=== PATIENT | female | born 1945 | race Caucasian/White ===

== ENCOUNTER 2017-12-17 13:39 | Outpatient (CLI) | payer BC, MEDICARE ==
--- NOTE | 2017-12-17 15:30 | MRI ---
NONCONTRAST ENHANCED MRI IMAGES LUMBAR SPINE: HISTORY: Patient with previous laminectomy in 2011, L4-5 surgery in 2007. IV contrast was not given as exam w as ordered without contrast. FINDINGS: Multiplanar, multisequence noncontrast-enhanced MRI images of lumbar spine performed. RADIOGRAPHIC FINDINGS: T11-12: Disk desiccation is seen at this level. No significant degree of central or neural foramina l narrowing is seen. There is some superior end plate height loss and old compression fracture involving the T12 vertebra. This, however, is not acute. T12-L1: Some disk desiccation is seen. Bilateral facet and ligamentum flavum hypertrophy is seen. No significant degree of central spinal stenosis is seen. The right neural foramen demonstrates mode rate to severe T12-L1 neural foraminal narrowing with some compression of exiting right T12 nerve robbie t. The left neural foramen is patent. L1-2: Disk desiccation is seen at this level. There is a broad-based disk bulge with bilateral face t and ligamentum flavum hypertrophy. This results in mild central and lateral recess stenosis. Ther e is moderate right and minimal left-sided neural foraminal narrowing seen. L2-3: Disk desiccation is seen. There is irregularity involving the inferior end plate of L2 and valadez perior end plate of L3. There is a broad-based disk bulge with severe facet and ligamentum flavum hy pertrophy. This results in a moderate degree of central and lateral recess stenosis. There is moder ate to severe right and moderate left-sided L2-3 neural foraminal narrowing. The end plate changes a ppear to be chronic and no evidence of edema is seen. L3-4: Disk desiccation is seen. There is a broad-based disk bulge with bilateral facet and ligament um flavum hypertrophy. There appears to be a left L3-4 lateral recess area of signal abnormality on the T2 weighted sequences. I cannot determine whether this area represents scar as IV contrast was n ot given. Repeat contrast-enhanced MRI may be of use to further characterize this area. There is mo derate to severe left L3-4 and moderate right-sided neural foraminal narrowing due to the broad-based disk bulge as well as the bilateral facet hypertrophy. Midline posterior L3, L4, L5, postsurgical i ncision site is seen. L4-5: Disk desiccation is seen. There is severe facet hypertrophy. There is minimal anterolisthesi s of L4 on L5 approximately 2 mm. There is disk space height loss at this level. Modic type II russell ges seen in the inferior end plate of L4 and superior end plate of L5. There is severe left L4-5 and moderate to severe right L4-5 neural foraminal narrowing due to facet hypertrophic changes. Midline laminotomy changes seen involving the posterior elements of L4. L5-S1: Some disk desiccation is seen. There is a broad-based disk bulge with bilateral facet hypert rophy. There is moderate to severe bilateral neural foraminal narrowing seen due to the facet hypert rophy. There appears to be an area of decreased signal in the left L5-S1 lateral recess. This may r epresent a left L5-S1 disk extrusion. It is difficult to determine whether this is chronic or more a cute without Gadolinium on this scan. IMPRESSION: 1. Postsurgical changes. 2. Multiple areas of neural foraminal narrowing as described above. 3. Possible disk extrusion at the L5-S1 level in the lateral recess region. POS: [facility]
== END 2017-12-17 13:40 | disposition home or self-care (01) ==
LOC: SCSMRI 13:39
PROVIDERS: ATTEND Anesthesiology Pain Medicine
DX: M54.16 Radiculopathy, lumbar region (principal); M99.83 Other biomechanical lesions of lumbar region; Z98.1 Arthrodesis status
CPT/HCPCS: 72148

== ENCOUNTER 2018-03-01 13:52 | Outpatient (CLI) | payer BC, MEDICARE | END 2018-03-01 13:53 | disposition home or self-care (01) | LOC: BICMAMMO 13:52 | PROVIDERS: ATTEND Internal Medicine | DX: Z12.31 Encounter for screening mammogram for malignant neoplasm of breast (principal); Z80.3 Family history of malignant neoplasm of breast | CPT/HCPCS: 77063; 77067 ==

== ENCOUNTER 2019-02-28 15:15 | Outpatient (CLI) | payer BC, MEDICARE | END 2019-02-28 15:16 | disposition home or self-care (01) | LOC: CTENTCT 15:15 | PROVIDERS: ATTEND Otolaryngology Plastic Surgery within the Head & Neck | DX: J32.9 Chronic sinusitis, unspecified (principal) | CPT/HCPCS: 70486 ==

== ENCOUNTER 2019-03-16 13:28 | Outpatient (CLI) | payer BC, MEDICARE ==
--- NOTE | 2019-03-16 14:37 | MMO ---
Bilateral MAMMO Bilat Screen DDI+DEBRA. CLINICAL HISTORY: Patient is 73 years old and is seen for screening. The patient has no family history of breast cancer. The patient has no personal history of cancer. The patient has a history of left Excisional Biopsy at age 50 - benign. VIEWS: The views performed were: bilateral craniocaudal with tomosynthesis and bilateral mediolateral oblique with tomosynthesis. FILMS COMPARED: The present examination has been compared to prior imaging studies performed at [facility] on 10/07/2009, 06/23/2013, 02/20/2016 and 03/01/2018. MAMMOGRAM FINDINGS: There are scattered fibroglandular densities. There are no suspicious masses, suspicious calcifications, or new areas of architectural distortion. IMPRESSION: THERE IS NO MAMMOGRAPHIC EVIDENCE OF MALIGNANCY. A ROUTINE FOLLOW-UP MAMMOGRAM IN 1 YEAR IS RECOMMENDED. THE RESULTS OF THIS EXAM WERE SENT TO THE PATIENT. ACR BI-RADS Category 1 - Negative MAMMOGRAPHY NOTE: 1. A negative mammogram report should not delay a biopsy if a dominant of clinically suspicious mass is present. 2. Approximately 10% to 15% of breast cancers are not detected by mammography. 3. Adenosis and dense breasts may obscure an underlying neoplasm. Reported by: SHIRA MARSHALL MD Electonically Signed: [id number]
== END 2019-03-16 13:29 | disposition home or self-care (01) ==
LOC: BICMAMMO 13:28
PROVIDERS: ATTEND Internal Medicine
DX: Z12.31 Encounter for screening mammogram for malignant neoplasm of breast (principal)
CPT/HCPCS: 77063; 77067

== ENCOUNTER 2019-06-08 10:21 | Outpatient (CLI) | payer BC, MEDICARE ==
--- NOTE | 2019-06-08 12:31 | RAD ---
LEFT RIBS THREE VIEWS: HISTORY: Anterior rib pain. FINDINGS: Heart size appears enlarged. A large hiatal hernia is seen. I do not visualize any rib fractures and no lytic or blastic bony change. IMPRESSION: 1. Large hiatal hernia. 2. Cardiomegaly. 3. No signs of rib fracture. POS: [facility]
--- NOTE | 2019-06-08 12:49 | RAD ---
TWO VIEW CHEST: INDICATION: Cough. COMPARISON: Reference is made to 12/04/2016 exam. FINDINGS: There is a large hiatal hernia. Mild interstitial prominence throughout each lung is seen. No effus ion or pneumothorax. No lobar consolidation. There is thoracic kyphosis with degenerative change of the spine. IMPRESSION: 1. Large hiatal hernia. 2. Mild interstitial opacities of each lung which may be on the basis of chronic interstitial lung d isease or alternatively edema. Correlate clinically. 3. No lobar consolidation. POS: [facility]
== END 2019-06-08 10:22 | disposition home or self-care (01) ==
LOC: BICRAD 10:21
PROVIDERS: ATTEND Internal Medicine
DX: R07.81 Pleurodynia (principal); R05 Cough; R91.8 Other nonspecific abnormal finding of lung field; K44.9 Diaphragmatic hernia without obstruction or gangrene; I51.7 Cardiomegaly
CPT/HCPCS: 71046

== ENCOUNTER 2020-03-01 06:48 | Outpatient (CLI) | payer BC, MEDICARE, OTHER ==
[2020-03-02 13:07] LABS: SARS-CoV-2 MS2 Positive; SARS-CoV-2 N Gene Negative; SARS-CoV-2 S Gene Negative; SARS-CoV-2 orf1ab Negative
== END 2020-03-01 06:49 | disposition home or self-care (01) ==
LOC: LABBT 06:48
PROVIDERS: ATTEND Anesthesiology Pain Medicine
DX: Z01.812 Encounter for preprocedural laboratory examination (principal); Z11.59 Encounter for screening for other viral diseases; M54.16 Radiculopathy, lumbar region; M96.1 Postlaminectomy syndrome, not elsewhere classified; G89.4 Chronic pain syndrome
CPT/HCPCS: 87635; U0003

== ENCOUNTER 2020-03-05 09:55 | Day surgery (SDC) | payer BC, MEDICARE ==
[2020-02-29 10:40] VITALS: BMI 38.7
[2020-03-05] MEDS ORDERED: Sodium Chloride 0.9% 100 ML ONE (10:30)
[2020-03-05] MEDS ORDERED: CEFAZOLIN 1 GM VIAL ONE (10:30)
[2020-03-05] MEDS ORDERED: Fentanyl 100 MCG/2 ML VIAL ONE ×2 (10:58→11:36)
[2020-03-05] MEDS ORDERED: Lidocaine 1% w/Epinephrine 1:100K 20 ML VIAL ONE (11:23)
[2020-03-05] MEDS ORDERED: Bupivacaine PF 0.5% 30 ML VIAL ONE (11:23)
[2020-03-05] MEDS ORDERED: Propofol 500 MG/50 ML VIAL ONE (11:36)
[2020-03-05] MEDS ORDERED: Morphine 2 MG/ML SYRINGE ONE (14:01)
--- NOTE | 2020-03-05 15:52 | OP ---
DATE OF PROCEDURE: 03/05/2020 PREOPERATIVE DIAGNOSES: 1. Postlaminectomy syndrome, lumbar. 2. Chronic pain, lumbar. 3. Chronic radiculopathy. POSTOPERATIVE DIAGNOSES: 1. Postlaminectomy syndrome, lumbar. 2. Chronic pain, lumbar. 3. Chronic radiculopathy. PROCEDURE PERFORMED: 1. Implantation of spinal cord stimulation electrode array, right side, eight contacts. 2. Implantation of spinal cord stimulation array, left side, eight contacts. 3. Implantation of IPG. 4. Intraoperative programming with fluoroscopic guidance. ANESTHESIA: TIVA. SUMMARY: Risks and benefits were discussed. Informed consent was obtained. She has had a prior successful trial of spinal cord stimulation. She was taken to the OR, prepped and draped in standard fashion using Hibiclens. Fluoroscopic guidance was used to identify the T12-L1 interspace, which was chosen as access into the epidural space using the supplied Touhy needle, loss of resistance technique. After adequate local anesthesia, the incision was carried down to the spinous processes and blunt dissection using the Bovie for dissection and hemostasis to the supraspinous ligament. The Touhy needle was then advanced into the ligamentum flavum, loss of resistance technique, one pass, no paresthesia, CSF, or heme. The first electrode array was passed into the epidural space with the most cephalad electrode at the superior endplate of T7, the next two were placed parallel with the 1st, and 2nd electrode array was placed parallel with the 1st to lie at the superior endplate of T7. Intraoperative programming using multiple pulse width, electrode arrays, frequencies were performed, with appropriate back and bilateral leg stimulation concordant with the patient's pain pattern. Incision was carried out over the right buttocks to house IPG. Fascia was undermined. Tunneling was accomplished between incisions. Anchoring with the supplied anchors was accomplished using silk sutures x2 to the fascia. Each anchor was then locked into place. The leads were then connected to the IPG, which was placed in the pocket after adequate tunneling. Using a ratcheted screwdriver, the leads were tightened to the IPG. The IPG was placed in the pocket riding side out and closure was accomplished in layers with 0 Vicryl interrupted and 4-0 Rapide for the skin and subcuticular, Dermabond for skin. No complications, she tolerated the procedure well. Dressing was with 4x4s and Medipore tape. The patient has a tape allergy, but we have used Medipore tape in the past without reaction. Job ID: [id number]
--- NOTE | 2020-03-05 16:34 | RAD ---
Thoracic spine intraoperative fluoroscopy 2 views HISTORY: Back pain. Dorsal column stimulator placement. FINDINGS: Intraoperative fluoroscopy was provided for dorsal column stimulator placement as performed by Dr. Lan. Spot fluoroscopic images show metallic needle overlying the central spinal canal at the thoracolumbar junction. One image shows 2 metallic leads overlying the central spinal ca nal at the mid to lower thoracic spine. Fluoroscopy time 36 seconds.
== END 2020-03-05 14:50 | disposition home or self-care (01) ==
LOC: SDC 09:55
PROVIDERS: ATTEND Anesthesiology Pain Medicine
PROC: 0JH70MZ Insertion of Stimulator Generator into Back Subcutaneous Tissue and Fascia, Open Approach (ICD-10-PCS; principal; 2020-03-05)
PROC: 00HU0MZ Insertion of Neurostimulator Lead into Spinal Canal, Open Approach (ICD-10-PCS; principal; 2020-03-05)
DX: M96.1 Postlaminectomy syndrome, not elsewhere classified (principal); M54.16 Radiculopathy, lumbar region; G89.4 Chronic pain syndrome; I10 Essential (primary) hypertension; E11.9 Type 2 diabetes mellitus without complications; K21.9 Gastro-esophageal reflux disease without esophagitis; Z79.899 Other long term (current) drug therapy; Z88.8 Allergy status to other drugs, medicaments and biological substances; Z91.048 Other nonmedicinal substance allergy status
CPT/HCPCS: 72070; 76000; C1767; C1778; J0690; J2270; J2704; J3010; J3490; S0020

== ENCOUNTER 2020-05-02 15:10 | Outpatient (CLI) | payer BC, MEDICARE | END 2020-05-02 15:11 | disposition home or self-care (01) | LOC: CTENTCT 15:10 | PROVIDERS: ATTEND Otolaryngology Plastic Surgery within the Head & Neck | DX: J32.8 Other chronic sinusitis (principal) | CPT/HCPCS: 70486 ==

== ENCOUNTER 2020-08-07 09:15 | Day surgery (SDC) | payer BC, MEDICARE ==
[2020-08-06 12:01] VITALS: BMI 38.7
[2020-08-07] MEDS ORDERED: Rocuronium Bromide 10 MG/ML (10ML VIAL) ONE (09:26)
[2020-08-07] MEDS ORDERED: Dexamethasone 20 MG/5 ML VIAL ONE (09:26)
[2020-08-07] MEDS ORDERED: Lidocaine 1% PF 5 ML VIAL ONE (09:26)
[2020-08-07] MEDS ORDERED: PROPOFOL 200 MG/20 ML VIAL ONE (09:26)
[2020-08-07] MEDS ORDERED: Ondansetron PF 4 MG/2 ML Vial ONE (09:26)
[2020-08-07] MEDS ORDERED: AFRIN NASAL MIST 15 ML BOT ONE ×2 (10:03→10:32)
[2020-08-07] MEDS ORDERED: Albuterol Sulfate 1.25 MG/3 ML NEB ONE (10:03)
[2020-08-07 10:28] LABS: Hemoglobin 13.7 g/dL (12.0-16.0)
[2020-08-07] MEDS ORDERED: Bacitracin Zinc Ointment 30 gm TUBE ONE (10:32)
[2020-08-07] MEDS ORDERED: Lidocaine 1% w/Epinephrine 1:100K 20 ML VIAL ONE (10:32)
[2020-08-07 10:35] LABS: Anion Gap 13 mmol/L (10-20); BUN (Urea Nitrogen) 17 mg/dL (9.8-20.1); Calc. Creatinine Clearance 88 mL/min (70-130); Calcium 9.5 mg/dL (7.8-10.44); Carbon Dioxide 29 mmol/L (23-31); Chloride 102 mmol/L (98-107); Estimated GFR-MDRD 57; Glucose 95 mg/dL (83-110); Potassium 4.3 mmol/L (3.5-5.1); Sodium 140 mmol/L (136-145)
[2020-08-07] MEDS ORDERED: Fentanyl 100 MCG/2 ML VIAL ONE ×2 (10:36→11:43)
[2020-08-07] MEDS ORDERED: SUGAMMADEX SODIUM 200 MG/2 ML VIAL ONE (11:19)
--- NOTE | 2020-08-07 12:36 | OP ---
DATE OF PROCEDURE: 08/07/2020 PREOPERATIVE DIAGNOSES: 1. Chronic rhinosinusitis. 2. Nasal obstruction. 3. Bilateral nasal valve collapse. 4. Bilateral inferior turbinate hypertrophy. POSTOPERATIVE DIAGNOSES: 1. Chronic rhinosinusitis. 2. Nasal obstruction. 3. Bilateral nasal valve collapse. 4. Bilateral inferior turbinate hypertrophy. PROCEDURES PERFORMED: 1. Bilateral endoscopic sinus surgery, total ethmoidectomies. 2. Bilateral endoscopic sinus surgery, maxillary antrostomies. 3. Bilateral endoscopic sinus surgery, frontal sinusotomies. 4. Bilateral repair of nasal valve collapse. 5. Bilateral inferior turbinate submucosal resection. ESTIMATED BLOOD LOSS: 20 mL. COMPLICATIONS: None. ANESTHESIA: GETA. DESCRIPTION OF PROCEDURE: The patient was taken to the operating room and placed supine on the table. General endotracheal anesthesia was obtained by the anesthesia staff. Tube was secured in the left lower lip. The patient was placed in a beach chair position and a 0-degree endoscope was advanced into the nasal cavity. 1% lidocaine with 1:100,000 epinephrine was injected into the inferior turbinates as well as the uncinate process and middle turbinate bilaterally. There were previous partial ethmoidectomies that were performed; however, there were still bony partitions and scar bands obliterating the ethmoidal sinuses as well as completely obstructing the frontal sinus area. The maxillary antrostomies that were positioned were positioned posterior and the natural maxillary ostia were actually still present. The ball ended probe was used to connect the next natural maxillary sinus ostia to the previous antrostomies, and the bone and tissue that were removed between these 2 anatomical areas with the 40-degree microdebrider blade and straight Blakesley forceps bilaterally. Following this, a 0-degree endoscope was advanced into ethmoidal cells. Remnant ethmoidal cells were opened using the microdebrider blade, and working from posterior to anterior, the ethmoidal cells were opened keeping the cribriform plate in view. Following this, 45-degree endoscope and 40-degree microdebrider blade were used to further open the frontal sinus ostia and frontal sinus bilaterally with the 40-degree microdebrider blade and up-biting Blakesley forceps. Following this, the inferior turbinates were punctured on the anterior and inferior aspects with submucosal microdebrider and submucosal resection was performed of the anterior and inferior portion of the inferior turbinates. This portion of the turbinates had become remarkably enlarged from previous surgeries. There was also a perforation present in the left superior inferior turbinate attachment to the lateral nasal wall. This area was preserved. Inferior turbinates were then lateralized with a [place] elevator bilaterally. Following this, a small incision was made in a transcartilaginous approach to the nasal bridge. A subperiosteal pocket was elevated above the nasal bones bilaterally and a graft was placed in an onlay fashion underlying the periosteum of the nasal bones and overlying the lower lateral cartilages providing support and against the dynamic valve collapse. The incision was then closed using a 5-0 chromic gut stitch. The patient tolerated the procedure well. Job ID: [id number]
--- NOTE | 2020-08-08 07:07 | EKG ---
Test Reason : PREOP Blood Pressure : / mmHG Vent. Rate : 053 BPM Atrial Rate : 053 BPM P-R Int : 146 ms QRS Dur : 090 ms QT Int : 460 ms P-R-T Axes : 061 -26 051 degrees QTc Int : 431 ms Sinus bradycardia with Premature atrial complexes Inferior infarct , age undetermined Cannot rule out Anterior infarct , age undetermined Abnormal ECG No previous ECGs available Confirmed by DR. Deonte FISHER ([id number]) on 08/08/2020 7:07:09 AM Referred By: SHANI Confirmed By:DR. Deonte FISHER
== END 2020-08-07 13:43 | disposition home or self-care (01) ==
LOC: SDC 09:15
PROVIDERS: ATTEND Otolaryngology Plastic Surgery within the Head & Neck
PROC: 09BU8ZZ Excision of Right Ethmoid Sinus, Via Natural or Artificial Opening Endoscopic (ICD-10-PCS; principal; 2020-08-07)
PROC: 099R8ZZ Drainage of Left Maxillary Sinus, Via Natural or Artificial Opening Endoscopic (ICD-10-PCS; principal; 2020-08-07)
PROC: 09BS8ZZ Excision of Right Frontal Sinus, Via Natural or Artificial Opening Endoscopic (ICD-10-PCS; principal; 2020-08-07)
PROC: 09BT8ZZ Excision of Left Frontal Sinus, Via Natural or Artificial Opening Endoscopic (ICD-10-PCS; principal; 2020-08-07)
PROC: 099Q8ZZ Drainage of Right Maxillary Sinus, Via Natural or Artificial Opening Endoscopic (ICD-10-PCS; principal; 2020-08-07)
PROC: 09BV8ZZ Excision of Left Ethmoid Sinus, Via Natural or Artificial Opening Endoscopic (ICD-10-PCS; principal; 2020-08-07)
PROC: 09BL8ZZ Excision of Nasal Turbinate, Via Natural or Artificial Opening Endoscopic (ICD-10-PCS; principal; 2020-08-07)
DX: J32.9 Chronic sinusitis, unspecified (principal); J34.89 Other specified disorders of nose and nasal sinuses; J34.3 Hypertrophy of nasal turbinates; I10 Essential (primary) hypertension; E11.9 Type 2 diabetes mellitus without complications; M06.9 Rheumatoid arthritis, unspecified; D64.9 Anemia, unspecified; Z79.899 Other long term (current) drug therapy; Z88.8 Allergy status to other drugs, medicaments and biological substances; Z91.048 Other nonmedicinal substance allergy status
CPT/HCPCS: 36415; 80048; 85014; 85018; 93005; 93010; J1100; J2405; J2704; J3010

== ENCOUNTER 2021-03-27 10:03 | Outpatient (CLI) | payer BC, MEDICARE | END 2021-03-27 10:04 | disposition home or self-care (01) | LOC: BICRAD 10:03 | PROVIDERS: ATTEND Nurse Practitioner Family | DX: M25.551 Pain in right hip (principal) ==

== ENCOUNTER 2021-08-19 11:38 | Outpatient (CLI) | payer BC, MEDICARE | END 2021-08-19 11:39 | disposition home or self-care (01) | LOC: RAD 11:38 | PROVIDERS: ATTEND Nurse Practitioner Family | DX: M25.511 Pain in right shoulder (principal); M19.011 Primary osteoarthritis, right shoulder; Z98.890 Other specified postprocedural states ==

== ENCOUNTER 2021-10-15 12:59 | Outpatient (CLI) | payer BC, MEDICARE | END 2021-10-15 13:00 | disposition home or self-care (01) | LOC: MRI 12:59 | PROVIDERS: ATTEND Orthopaedic Surgery | DX: M25.511 Pain in right shoulder (principal); M75.111 Incomplete rotator cuff tear or rupture of right shoulder, not specified as traumatic; M19.011 Primary osteoarthritis, right shoulder; M62.511 Muscle wasting and atrophy, not elsewhere classified, right shoulder ==

== ENCOUNTER 2022-09-28 11:13 | Outpatient (CLI) | payer BC, MEDICARE | END 2022-09-28 11:14 | disposition home or self-care (01) | LOC: BICRAD 11:13 | PROVIDERS: ATTEND Internal Medicine Rheumatology | DX: M81.0 Age-related osteoporosis without current pathological fracture (principal); M47.814 Spondylosis without myelopathy or radiculopathy, thoracic region; M41.9 Scoliosis, unspecified | CPT/HCPCS: 72070 ==

== ENCOUNTER 2023-04-09 10:06 | Outpatient (CLI) | payer MEDICARE, BC | END 2023-04-09 10:07 | disposition home or self-care (01) | LOC: NM 10:06 | PROVIDERS: ATTEND Nurse Practitioner Family | DX: M54.50 Low back pain, unspecified (principal) | CPT/HCPCS: 78306; A9503 ==

== ENCOUNTER 2023-04-19 09:07 | Inpatient (IN) | payer MEDICARE, BC ==
[2023-04-19] MEDS ORDERED: Heparin 25,000 units/D5W 500 ML ONE (09:31)
[2023-04-19] MEDS ORDERED: Aspirin Chewable 81 MG TAB ONE (09:31)
[2023-04-19] MEDS ORDERED: Heparin 10,000 UNITS/ 10 ML VIAL ONE (09:31)
[2023-04-19 09:38] LABS: Hemoglobin 13.8 g/dL (12.0-16.0); Mean Corpuscular HGB CONC 32.1 g/dL (32.0-36.0); Mean Corpuscular Hemoglobin 33.2 pg (27.0-31.0); Mean Corpuscular Volume 103.4 fl (78.0-98.0); Mean Platelet Volume 10.4 fL (7.4-10.4); Platelet Count 198 10x3/uL (130-400); RBC Distribution Width 15.1 % (11.5-14.5); Red Blood Cell (RBC) Count 4.16 mill/uL (4.20-5.40); White Blood Cell (WBC) Count 21.8 10x3/uL (4.8-10.8)
[2023-04-19 09:40] LABS: Delete Auto Diff?? YES; Manual Diff?? YES
[2023-04-19 09:45] LABS: Actual Bicarbonate (HCO3a) 17.9 mEq/L (22-28); CO2 Tension 34.6 mmHg (35.0-45.0); Carboxyhemoglobin (COHb) 0.5 gm% (0.0-3.0); Hematocrit-ABG 44 % (36.0-47.0); Hemoglobin (Hb) 14.8 g/dL (12.0-16.0); O2 Tension (PaO2), arterial 126.3 mmHg (> 70.0); pH, Arterial 7.332 (7.35-7.45)
[2023-04-19 09:46] LABS: Potassium - ABG Lab 3.81 mmol/L (3.70-5.30)
[2023-04-19 09:47] LABS: Analyzer IN Cardio ER; Puncture Site LRA
[2023-04-19 09:54] LABS: PTT 24.7 sec (22.9-36.1); Prothrombin Time 13.8 sec (12.0-14.7)
[2023-04-19 10:11] LABS: ALT (SGPT) 20 U/L (8-55); AST (SGOT) 33 U/L (5-34); Albumin 3.3 g/dL (3.4-4.8); Alkaline Phosphatase 107 U/L (40-110); Anion Gap 16 mmol/L (10-20); BUN (Urea Nitrogen) 19 mg/dL (9.8-20.1); Bilirubin, Total 0.4 mg/dL (0.2-1.2); Calc. Creatinine Clearance 0 mL/min (70-130); Calcium 8.6 mg/dL (7.8-10.44); Carbon Dioxide 19 mmol/L (23-31); Chloride 109 mmol/L (98-107); Estimated GFR 69; Globulin 2.4 g/dL (2.4-3.5); Glucose 201 mg/dL (83-110); Potassium 4.4 mmol/L (3.5-5.1); Protein, Total 5.7 g/dL (5.8-8.1); Sodium 140 mmol/L (136-145)
[2023-04-19 10:14] LABS: Band 2 % (5-11); CellaVision Operator ID LAB.GE; Eosinophils 2 % (0-10); Lymphocytes 20 % (21-51); Monocytes 1 % (0-10); Neutrophil 73 % (42-75); Platelet Adequacy Comment Platelets Normal; Polychromasia SLIGHT = 2-3 cells HPF (0-2); Reactive Lymphocytes 2 % (0-10); Total Cell Count 99
[2023-04-19] MEDS ORDERED: Piperacillin/Tazobactam 4.5 GM in Sodium Chloride 0.9% 100 ML IVPB SCH (10:30)
[2023-04-19] MEDS ORDERED: Vancomycin 1.5 GRAM/300 ML BAG 1.5 GM in Premix Bag 1 BAG IVPB SCH (10:30)
[2023-04-19] MEDS ORDERED: Piperacillin/Tazobactam 4.5 GM VIAL ONE (10:40)
[2023-04-19] MEDS ORDERED: Ipratropium/Albuterol 3 ML NEB ONE (10:50)
[2023-04-19] MEDS ORDERED: Electrolyte Replacement Protocol 1 EACH IVPB SCH (12:08)
[2023-04-19] MEDS ORDERED: Acetaminophen 325 MG/10.15 ML UDCUP PO PRN (12:08)
[2023-04-19] MEDS ORDERED: Ondansetron PF 4 MG/2 ML Vial IVP PRN (12:08)
[2023-04-19] MEDS ORDERED: Senokot S 8.6-50 MG TAB PO PRN (12:12)
[2023-04-19] MEDS ORDERED: Glucagon 1 MG/ML KIT IM PRN (12:14)
[2023-04-19] MEDS ORDERED: Dextrose 5% in Water 1,000 ML IV PRN (12:14)
[2023-04-19] MEDS ORDERED: Dextrose 50% Abboject 50 ML SYRINGE SLOW IVP PRN (12:14)
[2023-04-19] MEDS ORDERED: HumaLOG 300 UNITS/3 ML VIAL SC PRN ×2 (12:14)
[2023-04-19] MEDS ORDERED: Heparin 10,000 UNITS/ 10 ML VIAL SLOW IVP SCH (12:15)
[2023-04-19 12:56] LABS: Hematocrit 44.3 % (36.0-47.0); Hemoglobin 13.7 g/dL (12.0-16.0); Platelet Count 224 10x3/uL (130-400)
[2023-04-19 13:15] LABS: PTT 132.8 sec (22.9-36.1)
[2023-04-19 13:44] VITALS: BMI 43.3
[2023-04-19 15:26] LABS: Hemoglobin A1c 5.6 % (4.0-6.0)
[2023-04-19] MEDS: Heparin 25,000 units/D5W 500 ML IVPB SCH (16:17)
[2023-04-19 16:27] LABS: SARS-CoV-2 NAA Rapid Test Not Detected (NotDetected)
[2023-04-19] MEDS ORDERED: Famotidine/PF 20 mg/2ml Vial SLOW IVP SCH (21:00)
[2023-04-19] MEDS: Famotidine 20 MG TAB PO SCH (21:49)
[2023-04-19] MEDS: predniSONE 1 MG TAB PO SCH (21:49)
[2023-04-19 23:00] LABS: PTT 184.5 sec (22.9-36.1)
[2023-04-20 03:33] LABS: #Basophils 0.1 thou/uL (0.0-0.2); #Eosinphils 0.1 thou/uL (0.0-0.7); #Monocytes 0.9 thou/uL (0.11-0.59); #Neutrophils 10.1 thou/uL (1.40-6.50); %Basophils 0.4 % (0.0-1.0); %Eosinophils 0.5 % (0.0-10.0); %Lymphocytes 23.3 % (21.0-51.0); %Monocytes 5.9 % (0.0-10.0); %Neutrophils 69.3 % (42.0-75.0); Hematocrit 37.7 % (36.0-47.0); Mean Corpuscular HGB CONC 31.8 g/dL (32.0-36.0); Mean Corpuscular Hemoglobin 33.3 pg (27.0-31.0); Mean Corpuscular Volume 104.7 fl (78.0-98.0); Mean Platelet Volume 10.3 fL (7.4-10.4); Platelet Count 181 10x3/uL (130-400); RBC Distribution Width 15.2 % (11.5-14.5); White Blood Cell (WBC) Count 14.7 10x3/uL (4.8-10.8)
[2023-04-20 03:57] LABS: Anion Gap 13 mmol/L (10-20); BUN (Urea Nitrogen) 15 mg/dL (9.8-20.1); Calc. Creatinine Clearance 98 mL/min (70-130); Calcium 9.1 mg/dL (7.8-10.44); Carbon Dioxide 24 mmol/L (23-31); Chloride 107 mmol/L (98-107); Estimated GFR 72; Glucose 117 mg/dL (83-110); Potassium 4.3 mmol/L (3.5-5.1); Sodium 140 mmol/L (136-145)
[2023-04-20] MEDS: Heparin 25,000 units/D5W 500 ML IVPB SCH (06:38)
[2023-04-20] MEDS: Famotidine 20 MG TAB PO SCH (08:45)
[2023-04-20] MEDS: predniSONE 1 MG TAB PO SCH ×2 (08:45→20:34)
[2023-04-20] MEDS ORDERED: Dicyclomine 10 MG CAP PO PRN (14:06)
[2023-04-20] MEDS ORDERED: Zolpidem Tartrate 5 MG TAB PO PRN (14:06)
[2023-04-20 19:31] LABS: Bacteria/HPF None Seen HPF (None Seen); Bilirubin Negative (Negative); Blood, Urine Negative (Negative); Clarity Clear (Clear); Glucose, Urine (Dipstick) Normal (Negative); Ketone, Urine Negative (Negative); Leukocyte Negative Leu/uL (Negative); Nitrite Negative (Negative); Protein, Urine (Dipstick) Negative (Neg-Trace); RBC/HPF 0-3 HPF (0-3); Specific Gravity, Urine 1.005 (1.002-1.036); Squamous Epithelial 0-3 HPF (0-3); Urobilinogen Normal mg/dL (Less than 2); WBC/HPF 0-3 HPF (0-3); pH, Urine 6.5 (5.0-9.0)
[2023-04-20] MEDS: HYDROcodone/Acetaminophen 7.5/325 mg Tablet PO PRN (20:33)
[2023-04-20] MEDS: Folic Acid 1 MG TAB PO SCH (20:34)
[2023-04-21 02:24] LABS: #Basophils 0.1 thou/uL (0.0-0.2); #Eosinphils 0.1 thou/uL (0.0-0.7); %Basophils 0.6 % (0.0-1.0); %Eosinophils 0.9 % (0.0-10.0); %Neutrophils 65.8 % (42.0-75.0); Hematocrit 40.7 % (36.0-47.0); Mean Corpuscular HGB CONC 31.9 g/dL (32.0-36.0); Mean Corpuscular Hemoglobin 33.3 pg (27.0-31.0); Mean Corpuscular Volume 104.4 fl (78.0-98.0); Mean Platelet Volume 10.3 fL (7.4-10.4); Platelet Count 195 10x3/uL (130-400); RBC Distribution Width 15.2 % (11.5-14.5); White Blood Cell (WBC) Count 13.6 10x3/uL (4.8-10.8)
[2023-04-21 02:53] LABS: Anion Gap 14 mmol/L (10-20); BUN (Urea Nitrogen) 12 mg/dL (9.8-20.1); Calc. Creatinine Clearance 97 mL/min (70-130); Calcium 9.6 mg/dL (7.8-10.44); Carbon Dioxide 28 mmol/L (23-31); Chloride 105 mmol/L (98-107); Estimated GFR 71; Glucose 123 mg/dL (83-110); Potassium 4.1 mmol/L (3.5-5.1); Sodium 143 mmol/L (136-145)
[2023-04-21] MEDS: Heparin 25,000 units/D5W 500 ML IVPB SCH (03:38)
[2023-04-21] MEDS ORDERED: Electrolyte Replacement Protocol 1 EACH FS SCH (08:30)
[2023-04-21] MEDS: predniSONE 1 MG TAB PO SCH ×2 (09:00→20:38)
[2023-04-21] MEDS: Nebivolol HCl 2.5 MG TAB PO SCH ×2 (09:00→20:38)
[2023-04-21] MEDS: Folic Acid 1 MG TAB PO SCH ×2 (09:00→20:38)
[2023-04-21 09:14] LABS: Magnesium 1.8 mg/dL (1.6-2.6)
[2023-04-21] MEDS ORDERED: Mag-Al 1200 mg/1200 mg/30 ML UDCUP PO PRN (10:35)
[2023-04-21] MEDS ORDERED: Magnesium 2 GM/50 ML(in water) 2 GM in Premix Bag 1 BAG IVPB SCH (11:00)
[2023-04-21] MEDS ORDERED: Morphine 4 MG/ML VIAL SLOW IVP SCH (11:15)
[2023-04-21 14:33] LABS: Critical Call Chem Troponin I DECREASE; Troponin I 0.233 ng/mL (< 0.028)
[2023-04-21] MEDS: Apixaban 5 MG TAB PO SCH (16:11)
[2023-04-21] MEDS: HYDROcodone/Acetaminophen 7.5/325 mg Tablet PO PRN (18:20)
[2023-04-21] MEDS: Cyanocobalamin (Vitamin B-12) 1,000 MCG TAB PO SCH (20:38)
[2023-04-22 04:03] LABS: #Eosinphils 0.3 thou/uL (0.0-0.7); #Monocytes 0.8 thou/uL (0.11-0.59); #Neutrophils 8.9 thou/uL (1.40-6.50); %Basophils 0.3 % (0.0-1.0); %Lymphocytes 23.3 % (21.0-51.0); %Monocytes 5.8 % (0.0-10.0); %Neutrophils 68.1 % (42.0-75.0); Hematocrit 40.2 % (36.0-47.0); Mean Corpuscular HGB CONC 32.3 g/dL (32.0-36.0); Mean Corpuscular Hemoglobin 33.3 pg (27.0-31.0); Mean Corpuscular Volume 103.1 fl (78.0-98.0); Mean Platelet Volume 10.3 fL (7.4-10.4); Platelet Count 224 10x3/uL (130-400); RBC Distribution Width 14.8 % (11.5-14.5)
[2023-04-22 04:23] LABS: Anion Gap 11 mmol/L (10-20); BUN (Urea Nitrogen) 13 mg/dL (9.8-20.1); Calc. Creatinine Clearance 98 mL/min (70-130); Calcium 9.3 mg/dL (7.8-10.44); Carbon Dioxide 29 mmol/L (23-31); Chloride 103 mmol/L (98-107); Estimated GFR 73; Glucose 115 mg/dL (83-110); Potassium 4.3 mmol/L (3.5-5.1); Sodium 139 mmol/L (136-145)
[2023-04-22] MEDS: Apixaban 5 MG TAB PO SCH ×2 (05:24→16:38)
[2023-04-22] MEDS: Folic Acid 1 MG TAB PO SCH ×2 (08:06→20:57)
[2023-04-22] MEDS: predniSONE 1 MG TAB PO SCH ×2 (08:07→20:57)
[2023-04-22] MEDS: Nebivolol HCl 2.5 MG TAB PO SCH ×2 (08:07→20:57)
[2023-04-22] MEDS: Calcium Carbonate 500 MG ChewTAB PO PRN ×3 (08:14→18:17)
[2023-04-22] MEDS: HYDROcodone/Acetaminophen 7.5/325 mg Tablet PO PRN (16:38)
[2023-04-22] MEDS: Cyanocobalamin (Vitamin B-12) 1,000 MCG TAB PO SCH (20:57)
[2023-04-23 04:06] LABS: #Basophils 0.1 thou/uL (0.0-0.2); #Eosinphils 0.3 thou/uL (0.0-0.7); #Monocytes 0.8 thou/uL (0.11-0.59); %Basophils 0.5 % (0.0-1.0); %Eosinophils 2.2 % (0.0-10.0); %Lymphocytes 27.7 % (21.0-51.0); %Monocytes 6.6 % (0.0-10.0); %Neutrophils 62.3 % (42.0-75.0); Hemoglobin 12.9 g/dL (12.0-16.0); Mean Corpuscular HGB CONC 33.1 g/dL (32.0-36.0); Mean Corpuscular Hemoglobin 33.7 pg (27.0-31.0); Mean Corpuscular Volume 101.8 fl (78.0-98.0); Mean Platelet Volume 10.4 fL (7.4-10.4); Platelet Count 214 10x3/uL (130-400); RBC Distribution Width 14.7 % (11.5-14.5); Red Blood Cell (RBC) Count 3.83 mill/uL (4.20-5.40); White Blood Cell (WBC) Count 12.8 10x3/uL (4.8-10.8)
[2023-04-23 04:35] LABS: Anion Gap 13 mmol/L (10-20); BUN (Urea Nitrogen) 17 mg/dL (9.8-20.1); Calc. Creatinine Clearance 95 mL/min (70-130); Calcium 9.3 mg/dL (7.8-10.44); Carbon Dioxide 28 mmol/L (23-31); Chloride 103 mmol/L (98-107); Estimated GFR 71; Glucose 121 mg/dL (83-110); Magnesium 1.7 mg/dL (1.6-2.6); Potassium 4.6 mmol/L (3.5-5.1); Sodium 139 mmol/L (136-145)
[2023-04-23] MEDS: Apixaban 5 MG TAB PO SCH ×2 (04:44→18:35)
[2023-04-23] MEDS ORDERED: Magnesium 2 GM/50 ML(in water) 2 GM in Premix Bag 1 BAG IVPB SCH (08:15)
[2023-04-23] MEDS: Folic Acid 1 MG TAB PO SCH ×2 (09:04→21:36)
[2023-04-23] MEDS: HYDROcodone/Acetaminophen 7.5/325 mg Tablet PO PRN ×2 (09:04→21:35)
[2023-04-23] MEDS: predniSONE 1 MG TAB PO SCH ×2 (09:04→21:36)
[2023-04-23] MEDS: Nebivolol HCl 2.5 MG TAB PO SCH ×2 (09:04→21:37)
[2023-04-23] MEDS: Cyanocobalamin (Vitamin B-12) 1,000 MCG TAB PO SCH (21:36)
[2023-04-24] MEDS ORDERED: Electrolyte Replacement Protocol 1 EACH FS SCH (03:15)
[2023-04-24 04:58] LABS: #Basophils 0.1 thou/uL (0.0-0.2); #Eosinphils 0.3 thou/uL (0.0-0.7); #Monocytes 0.9 thou/uL (0.11-0.59); #Neutrophils 7.5 thou/uL (1.40-6.50); %Basophils 0.8 % (0.0-1.0); %Lymphocytes 29.5 % (21.0-51.0); %Monocytes 7.2 % (0.0-10.0); Hematocrit 41.8 % (36.0-47.0); Hemoglobin 13.2 g/dL (12.0-16.0); Mean Corpuscular HGB CONC 31.6 g/dL (32.0-36.0); Mean Corpuscular Hemoglobin 33.2 pg (27.0-31.0); Mean Corpuscular Volume 105.3 fl (78.0-98.0); Mean Platelet Volume 10.3 fL (7.4-10.4); Platelet Count 257 10x3/uL (130-400); RBC Distribution Width 14.7 % (11.5-14.5); Red Blood Cell (RBC) Count 3.97 mill/uL (4.20-5.40); White Blood Cell (WBC) Count 12.5 10x3/uL (4.8-10.8)
[2023-04-24 05:28] LABS: Anion Gap 16 mmol/L (10-20); BUN (Urea Nitrogen) 19 mg/dL (9.8-20.1); Calc. Creatinine Clearance 93 mL/min (70-130); Calcium 9.4 mg/dL (7.8-10.44); Carbon Dioxide 22 mmol/L (23-31); Chloride 106 mmol/L (98-107); Estimated GFR 70; Glucose 118 mg/dL (83-110); Magnesium 1.9 mg/dL (1.6-2.6); Potassium 4.5 mmol/L (3.5-5.1); Sodium 139 mmol/L (136-145)
[2023-04-24] MEDS: Apixaban 5 MG TAB PO SCH (06:18)
[2023-04-24] MEDS ORDERED: Magnesium 2 GM/50 ML(in water) 2 GM in Premix Bag 1 BAG IVPB SCH (08:00)
[2023-04-24 08:24] VITALS: TEMP 98
[2023-04-24] MEDS: Nebivolol HCl 2.5 MG TAB PO SCH (08:39)
[2023-04-24] MEDS: Folic Acid 1 MG TAB PO SCH (08:39)
[2023-04-24] MEDS: predniSONE 1 MG TAB PO SCH (08:39)
[2023-04-24] MEDS: HYDROcodone/Acetaminophen 7.5/325 mg Tablet PO PRN (08:40)
[2023-04-24 11:26] VITALS: BP 138/66
== END 2023-04-24 13:55 | disposition home or self-care (01) | DRG 175 ==
LOC: ERS 09:07 → CCU 12:14 → 2SE 04-23 18:05
PROVIDERS: ADMIT Student in an Organized Health Care Education/Training Program; ATTEND Internal Medicine
PROC: 3E03317 Introduction of Other Thrombolytic into Peripheral Vein, Percutaneous Approach (ICD-10-PCS; principal; 2023-04-19)
PROC: 4A133R1 Monitoring of Arterial Saturation, Peripheral, Percutaneous Approach (ICD-10-PCS; 2023-04-19)
DX: I26.02 Saddle embolus of pulmonary artery with acute cor pulmonale (principal); I21.A1 Myocardial infarction type 2; J96.01 Acute respiratory failure with hypoxia; Z68.41 Body mass index [BMI] 40.0-44.9, adult; E87.20 Acidosis, unspecified; I82.432 Acute embolism and thrombosis of left popliteal vein; I82.412 Acute embolism and thrombosis of left femoral vein; I95.9 Hypotension, unspecified; K44.9 Diaphragmatic hernia without obstruction or gangrene; I10 Essential (primary) hypertension; E11.9 Type 2 diabetes mellitus without complications; M06.9 Rheumatoid arthritis, unspecified; R55 Syncope and collapse; I07.1 Rheumatic tricuspid insufficiency; E66.01 Morbid (severe) obesity due to excess calories; G47.30 Sleep apnea, unspecified; Z96.651 Presence of right artificial knee joint; Z20.822 Contact with and (suspected) exposure to COVID-19; Z90.710 Acquired absence of both cervix and uterus; Z91.048 Other nonmedicinal substance allergy status; Z88.8 Allergy status to other drugs, medicaments and biological substances; Z79.899 Other long term (current) drug therapy; Z82.49 Family history of ischemic heart disease and other diseases of the circulatory system; Z90.89 Acquired absence of other organs; Z90.49 Acquired absence of other specified parts of digestive tract; Z98.890 Other specified postprocedural states; Z79.52 Long term (current) use of systemic steroids; L40.50 Arthropathic psoriasis, unspecified
CPT/HCPCS: 36415; 36416; 36600; 71045; 71275; 80048; 80053; 81001; 82805; 83036; 83735; 83880; 84484; 85025; 85610; 85730; 93005; 93010; 93306; 93970; 94760; 96365; 96366; 96367; J1644; J2270; J2543; J3370; J3475; J7512; J7620; U0002

== ENCOUNTER 2023-06-28 17:00 | Outpatient (CLI) | payer MEDICARE, BC | END 2023-06-28 17:01 | disposition home or self-care (01) | LOC: SLEEPLAB 17:00 | PROVIDERS: ATTEND Internal Medicine Critical Care Medicine | DX: G47.33 Obstructive sleep apnea (adult) (pediatric) (principal) | CPT/HCPCS: 95810 ==

== ENCOUNTER 2023-11-13 07:53 | Emergency (ER) | payer MEDICARE ==
[2023-11-13] MEDS ORDERED: diphenhydrAMINE 50 MG/ML VIAL ONE (08:37)
[2023-11-13] MEDS ORDERED: methylPREDNISolone Sod Succ/PF 125 MG/2 ML VIAL ONE (08:37)
[2023-11-13 08:43] LABS: #Eosinphils 0.2 thou/uL (0.0-0.7); #Monocytes 0.1 thou/uL (0.11-0.59); #Neutrophils 5.6 thou/uL (1.40-6.50); %Basophils 0.1 % (0.0-1.0); %Eosinophils 1.9 % (0.0-10.0); %Lymphocytes 34.4 % (21.0-51.0); %Monocytes 0.9 % (0.0-10.0); %Neutrophils 62.4 % (42.0-75.0); Hematocrit 41.7 % (36.0-47.0); Mean Corpuscular HGB CONC 33.6 g/dL (32.0-36.0); Mean Corpuscular Hemoglobin 33.2 pg (27.0-31.0); Mean Corpuscular Volume 98.8 fl (78.0-98.0); Mean Platelet Volume 10.4 fL (7.4-10.4); Platelet Count 233 10x3/uL (130-400); RBC Distribution Width 14.9 % (11.5-14.5); Red Blood Cell (RBC) Count 4.22 mill/uL (4.20-5.40)
[2023-11-13 09:03] LABS: ALT (SGPT) 40 U/L (8-55); AST (SGOT) 35 U/L (5-34); Albumin 3.9 g/dL (3.4-4.8); Alkaline Phosphatase 85 U/L (40-110); Anion Gap 15 mmol/L (10-20); BUN (Urea Nitrogen) 17 mg/dL (9.8-20.1); Bilirubin, Total 1.4 mg/dL (0.2-1.2); Calc. Creatinine Clearance 0 mL/min (70-130); Calcium 8.8 mg/dL (7.8-10.44); Carbon Dioxide 24 mmol/L (23-31); Chloride 105 mmol/L (98-107); Estimated GFR 71; Globulin 2.5 g/dL (2.4-3.5); Glucose 120 mg/dL (83-110); Potassium 3.9 mmol/L (3.5-5.1); Protein, Total 6.4 g/dL (5.8-8.1); Sodium 140 mmol/L (136-145)
[2023-11-13] MEDS ORDERED: EPINEPHrine 1 MG/ML VIAL ONE (09:07)
[2023-11-13] MEDS ORDERED: Famotidine/PF 20 mg/2ml Vial ONE (09:07)
[2023-11-13 09:25] LABS: Magnesium 1.9 mg/dL (1.6-2.6)
[2023-11-13 09:30] LABS: Troponin I Less than 0.010 ng/mL (< 0.028)
[2023-11-13 09:35] LABS: INR-International Normal Ratio 1.1; Prothrombin Time 14.4 sec (12.0-14.7)
[2023-11-13 09:36] LABS: PTT 33.2 sec (22.9-36.1)
[2023-11-13 10:09] LABS: Influenza A by NAA Not Detected (NotDetected); Influenza B by NAA Not Detected (NotDetected); SARS-CoV-2 NAA Rapid Test Not Detected (NotDetected)
[2023-11-13] MEDS ORDERED: Ondansetron PF 4 MG/2 ML Vial ONE (10:49)
== END 2023-11-13 13:17 | disposition home or self-care (01) ==
LOC: ERS 07:53
DX: T78.40XA Allergy, unspecified, initial encounter (principal); R21 Rash and other nonspecific skin eruption; E11.9 Type 2 diabetes mellitus without complications; I10 Essential (primary) hypertension
CPT/HCPCS: 0240U; 71045; 80053; 83605; 83735; 84484; 85025; 85610; 85730; 87081; 87430; 93005; J0171; 96361; 96372; 96374; 96375; J1200; J2405; J2930; S0028